=== PATIENT | female | born 1985 | race Caucasian/White ===

== ENCOUNTER 2024-05-28 06:20 | Inpatient (IN) | payer OTHER ==
[2024-05-28] MEDS: ELECTROLYTE-148 SOLN 500 ML IV SCH ×2 (06:30→12:17)
[2024-05-28 07:41] VITALS: BMI 26.4
[2024-05-28] MEDS: CITRIC ACID/SODIUM CITRATE 30 ML UNIT-DOSE CUP PO ONE (07:45)
[2024-05-28] MEDS ORDERED: morphine SULFATE/PF 1 MG/2 ML (2cc Syringe - QUVA) ONE (07:53)
[2024-05-28] MEDS ORDERED: OXYTOCIN 20 UNITS in 0.9% NS 20 UNIT/1,000 ML INFUS.BAG IV ONE (09:51)
[2024-05-28] MEDS: OXYTOCIN 20 UNITS in 0.9% NS 20 UNIT/1,000 ML INFUS.BAG IV SCH (09:57)
[2024-05-28] MEDS ORDERED: oxyCODONE HCL 5 MG TABLET PO PRN (09:59)
[2024-05-28] MEDS ORDERED: ACETAMINOPHEN INJECTION 100 ML ONE (10:45)
[2024-05-28] MEDS: ACETAMINOPHEN 1000 MG/100 ML BAG IVPB SCH (10:48)
[2024-05-28] MEDS: METHYLERGONOVINE MALEATE 0.2 MG/1 ML AMP IM ONE ×2 (11:28→14:30)
[2024-05-28] MEDS: ONDANSETRON 4 MG/2 ML VIAL IVPB PRN (12:17)
[2024-05-28] MEDS: ELECTROLYTE-148 SOLN 500 ML IV ONE (12:18)
[2024-05-28] MEDS: IBUPROFEN 800 MG/8 ML IJ IVPB SCH (12:21)
[2024-05-28] MEDS: CARBOPROST TROMETHAMINE 250 MCG/ML AMPUL IM ONE (17:00)
[2024-05-28 18:00] LABS: HEMATOCRIT 34.7 % (32.4-45.2); HEMOGLOBIN 11.4 GM/dL (10.7-15.3); MCHC 32.8 g/dl (32.0-36.0); MEAN CELL VOLUME 91.7 fl (80-96); MEAN PLT VOLUME 8.8 fl (7.5-11.1); PLATELET COUNT 215 10^3/uL (134-434); RBC 3.78 M/mm3 (3.60-5.2); RDW 15.6 % (11.6-15.6); WHITE BLOOD COUNT 17.7 K/mm3 (4.0-10.0)
[2024-05-28] MEDS: METOCLOPRAMIDE HCL INJECTION 10 MG/2 ML VIAL IVPUSH PRN (18:18)
[2024-05-28] MEDS: SIMETHICONE 80 MG TAB.CHEW (FP) PO PRN (21:38)
[2024-05-29] MEDS: SENNOSIDES/DOCUSATE COMBO (SENNA PLUS) TABLET (UD) PO SCH (01:26)
[2024-05-29] MEDS: METHYLERGONOVINE MALEATE 0.2 MG/1 ML AMP IM PRN (01:45)
[2024-05-29] MEDS ORDERED: TRANEXAMIC ACID 1000 MG/10 ML VIAL ONE (01:57)
[2024-05-29] MEDS: TRANEXAMIC ACID 1000 MG/10 ML VIAL IVPB ONE (02:20)
[2024-05-29] MEDS: METHYLERGONOVINE MALEATE 0.2 MG TABLET (FP) PO SCH (02:33)
[2024-05-29 08:33] LABS: POTASSIUM 4.1 mmol/L (3.5-5.1)
[2024-05-29 08:35] LABS: CALCIUM 8.1 mg/dL (8.5-10.1)
[2024-05-29 08:36] LABS: BLOOD UREA NITROGEN 7.6 mg/dL (7-18)
[2024-05-29 08:39] LABS: CREATININE 0.6 mg/dL (0.55-1.3)
[2024-05-29 08:40] LABS: BILIRUBIN,TOTAL 0.4 mg/dL (0.2-1)
[2024-05-29 08:45] LABS: ALBUMIN 2.2 g/dl (3.4-5.0)
[2024-05-29 09:03] LABS: BASO % 0.3 % (0-2.0); EOS % 0.1 % (0-4.5); HEMATOCRIT 30.2 % (32.4-45.2); HEMOGLOBIN 10.1 GM/dL (10.7-15.3); MCH 30.5 pg (25.7-33.7); MCHC 33.4 g/dl (32.0-36.0); MEAN CELL VOLUME 91.4 fl (80-96); MEAN PLT VOLUME 9.3 fl (7.5-11.1); MONO % 3.6 % (3.8-10.2); PLATELET COUNT 216 10^3/uL (134-434); RBC 3.31 M/mm3 (3.60-5.2); RDW 15.9 % (11.6-15.6); WHITE BLOOD COUNT 13.2 K/mm3 (4.0-10.0)
[2024-05-29] MEDS: IBUPROFEN 600 MG TABLET (FP) PO PRN (09:44)
[2024-05-29] MEDS ORDERED: BISACODYL 10 MG SUPP.RECT RC PRN (09:59)
[2024-05-29] MEDS: ACETAMINOPHEN 500 MG TABLET (FP) PO PRN (21:58)
[2024-05-30 21:49] VITALS: RESP 18
[2024-05-31 10:03] VITALS: BP 114/74; PULSE 91; TEMP 98.2
== END 2024-05-31 13:50 | disposition home or self-care (01) | DRG 540 ==
LOC: JLDR 06:20 → J3W 12:05
PROVIDERS: ADMIT Specialist; ATTEND Specialist
PROC: 10D00Z1 Extraction of Products of Conception, Low, Open Approach (ICD-10-PCS; principal; 2024-05-28)
PROC: 0HB7XZZ Excision of Abdomen Skin, External Approach (ICD-10-PCS; 2024-05-28)
DX: O34.211 Maternal care for low transverse scar from previous cesarean delivery (principal); O72.1 Other immediate postpartum hemorrhage; Z3A.39 39 weeks gestation of pregnancy; Z37.0 Single live birth; O75.89 Other specified complications of labor and delivery; L91.0 Hypertrophic scar
CPT/HCPCS: 36415; 59409; 80053; 85025; 85027; 85610; 85730; 86780; 86850; 86900; 86901; 87389; 88304-TC; 88307-TC; 94010; J0131